=== PATIENT | male | born 1975 | race Two or more races ===

== ENCOUNTER → 2017-03-10 | Day surgery (SDC) | payer OTHER ==
[~2017-03-10] MED LIST: OMEPRAZOLE10 M1 PO
--- NOTE | ~2017-03-10 | OR ---
Unit #: [id number] #: [id number] Patient: GRANT MCGEE [id number] [address] [place], [place] [address] [id number] O MR#: [id number] NAME: GRANT MCGEE ROOM: Date of Procedure: 03/10/2017 Admission Date: 03/10/2017 Surgeon: Jaswant Cuellar M.D. : 1975 Attending Physician: Jaswant Cuellar M.D. OPERATIVE REPORT PRIMARY CARE PHYSICIAN Dr. Terry Romero. PREOPERATIVE DIAGNOSES The patient has come for colorectal cancer screening. He has a family history of colon cancer in his father. PROCEDURES PERFORMED Colonoscopy and polypectomy. POSTOPERATIVE DIAGNOSES 1. The patient had 2 sessile polyps, the first one was in the proximal ascending colon about 1.6 cm in size. The second polyp was small in the sigmoid colon and was about 6 to 7 mm in size. Both the polyps were removed using snare polypectomy. They were retrieved and sent for histology. 2. Scant sigmoid diverticulosis. 3. Rest of examination up to cecum was normal. The quality of the prep was good. RECOMMENDATIONS Follow up results of polyp histology and consider repeat colonoscopy in 5 years. SEDATION USED MAC. DESCRIPTION OF PROCEDURE Following detailed explanation of the potential risks and complications of a colonoscopy, namely perforation, bleeding, and complications related to sedation, the patient was brought to GI lab and laid in the left lateral decubitus position. A digital rectal examination was performed, which was normal. Lubricated tip of the Olympus video colonoscope was inserted through the anus and advanced under direct vision. The scope was advanced and passed up to sigmoid into descending colon. Multiple small scant diverticula were noted in this area. The scope tip was then navigated all the way up to cecum with visualization of ileocecal valve and the appendiceal orifice. Preparation was good with good visualization and photodocumentation was obtained. Successive segments of the colonic mucosa were examined upon withdrawal. Single sessile polyp was 1.6 cm in size seen in the proximal ascending colon. This was removed using snare Unit #: [id number] #: [id number] Patient: GRANT MCGEE cautery polypectomy. A second smaller polyp was seen in the sigmoid colon. This was about 6 mm in size, was also removed using snare polypectomy. It was retrieved and sent for histology. No additional polyps were noted. Other than the left-sided diverticula, no other abnormalities were found. The patient did not have any internal hemorrhoids. The scope was then withdrawn. The patient returned to the recovery area. He tolerated the procedure without any postprocedure complications. Dictated by... Zachary Loya/gary TD: 03/10/2017 18:18 JOB #: [id number] OPERATIVE REPORT Page 1 of 1 X Jaswant Cuellar MD X PROCEDURE OPERATIVE NOTE
== END | disposition home or self-care (01) ==
LOC: COPS 12:29
DX: Z12.11 Encounter for screening for malignant neoplasm of colon (principal); K63.5 Polyp of colon; K57.30 Diverticulosis of large intestine without perforation or abscess without bleeding; K21.9 Gastro-esophageal reflux disease without esophagitis; F17.210 Nicotine dependence, cigarettes, uncomplicated; Z80.0 Family history of malignant neoplasm of digestive organs; Z79.899 Other long term (current) drug therapy
CPT/HCPCS: 88305; J2250